=== PATIENT | male | born 1955 | race Caucasian/White ===

== ENCOUNTER 2019-05-05 06:51 | Day surgery (SDC) | payer OTHER ==
[~2019-05-05] VITALS: Ht 162.6 cm; Wt 63.5 kg
[~2019-05-05 06:51] MED LIST: ASPIRIN81 M2 PO; CARVEDILOL3.125 MG PO; CENTRUM SILVER1 EAC2 PO; ESCITALOPRAM OX10 MG PO; KEPPRA1000 MG PO; LISINOPRIL5 MG PO; METFORMIN HCL1000 MG PO; NEURONTIN 300300 M1 PO; NITROGLYCERIN0.4 MG SUBLING; PLAVIX 75 MG TA75 M1 PO; PRED FORTE 1% EY5 M1 OPHTHALMIC
[2019-05-05 08:00] VITALS: BP 131/61
--- NOTE | 2019-05-09 06:19 | O ---
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 PROCEDURE: Enucleation of left eye with implantation of 18 mm Medpor sphere with muscles attached to implant, conjunctivoplasty, and temporary tarsorrhaphy. SURGEON: Kody Telles MD. SLAUGHTERER RELIGIOUS RITUAL: None. ANESTHESIA: General. COMPLICATIONS: None. INDICATIONS FOR SURGERY: This pleasant 63-year-old gentleman has an irreversibly blinded left eye that is chronically painful. He presents today for removal of the eye with reconstruction of the socket. Informed consent was obtained to include but not limited to the potential risk for loss of vision, bleeding, infection, failure to improve the problem, and the potential need for further surgery or treatment. DESCRIPTION OF PROCEDURE: The patient was taken to the operating room where general anesthesia was administered. The left socket was then anesthetized with Xylocaine with epinephrine mixed with Marcaine and Wydase administered both transconjunctivally and transcutaneously. The patient was subsequently prepped and draped in the usual sterile fashion. A moistened sponge was placed on the right eye. A lid speculum was then placed on the left side. A 360-degree conjunctival peritomy was subsequently performed. The oblique quadrants were then bluntly dissected with a Nilson scissor. The lateral rectus muscle was then isolated [facility] [address] [place] [address] OPERATIVE REPORT Name: PARADISE TRUJILLO Room #: DEP [facility] M.Lizette.#: [id number] Admission: 05/05/19 Attend Phys: Kody Telles MD Discharge: 05/05/19 Date of : 55 Report #: [id number] on a muscle hook from the surrounding connective tissue. It was cleaned back from its insertion. A 5-0 double armed Vicryl sutures and that was then passed through its insertion with locking bites at each margin. The muscle was then transected from its attachment to the globe in a Rey used to retract the suture out of the field. The inferior medial and superior rectus muscles were similarly isolated and drawn out of the field. The oblique muscles were isolated on a muscle hook and detached from the globe with a cutting cautery current. The optic nerve was then clamped with a hemostat for 3 minutes. That was released and it was reclamped for 3 more minutes. That was released and it was subsequently reclamped one more time for 3 more minutes. The optic nerve was then transected with an enucleation scissor. Minimal bleeding ensued. It was controlled with diligent pinpoint monopolar cautery. The posterior tenons opening was then opened more widely to allow placement of the sizing sphere. A 20 mm sphere appeared too large, which was somewhat surprising. An 18 mm sphere fit, but it was also snugged. The decision was to go ahead and use the 18 mm sphere. The 18 mm Medpor sphere was selected, was then vacuum aspirated in antibiotic irrigation solution. It was then reposited behind posterior tenons with the aid of an easy glide introducer. Posterior tenons were then closed with interrupted 5-0 Vicryl sutures. The medial and lateral rectus muscles were then advanced and attached to the implant with interrupted 5-0 Vicryl sutures. The superior and inferior rectus muscles were then advanced and attached to the medial and lateral rectus muscles with interrupted 5-0 Vicryl sutures. Anterior tenons were then closed with interrupted 5-0 Vicryl sutures. The conjunctiva was then undermined sufficiently to allow a conjunctivoplasty repair to be accomplished correcting the defect in its most anterior plane. Hemostasis was then re-achieved. The conjunctiva was then advanced and secured with interrupted and running 6-0 Vicryl sutures. The conjunctivoplasty seated well. A medium size conformer was then placed in the socket. Erythromycin ophthalmic ointment was then instilled behind the conformer. A temporary tarsorrhaphy was then fashioned from a short section of IV tubing and a double armed 5-0 nylon suture passed. At Telfa pad was then placed on the eye followed by 2 eye patches are held in place with silk tape and Mastisol. The patient was subsequently transported to the recovery area having tolerated the procedures well with no anesthetic or operative complications being noted. <ELECTRONICALLY SIGNED> By: Kody Telles MD 05/09/19 0619 [id number] Kody Telles MD /nt
--- NOTE | 2019-05-09 18:07 | PATH ---
[facility] [address] [place] [address] PATHOLOGY RPT PROCEDURE Name: PARADISE TEJEDA Room #: DEP [facility] M.R.#: [id number] Admission: 05/05/19 Date of : 55 Discharge: 05/05/19 Report #: [id number] Path Case #: [id number] [facility] Accession Number: [id number] . 01 Material submitted: . eye - LEFT EYE. Modifiers: left . 01 Clinical history: . Blind painful left eye . 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 . (IUV:chacorta; 05/09/2019) QMS 05/09/2019 1328 Local . 02 Electronically signed: . Allie Sawyer MD, Pathologist NPI- [id number] . 01 Gross description: . The specimen is received in formalin, labeled "Paradise Tejeda, left eye". Received is an enucleation specimen measuring 2.6 x 2.4 x 2.3 cm in greatest dimensions with a suture at one aspect, however, orientation is not provided. The optic nerve stump measures 0.5 cm in diameter by 0.5 cm in length. The cornea is irregular in contour and cloudy. The sclera is white to slightly yellow-mcintosh in appearance. Sectioning reveals a yellow plastic prosthetic lens measuring 0.6 x 0.6 cm. The vitreous chamber is filled with clear, slightly gelatinous fluid. The choroid layer is red-brown and slightly mottled in appearance, and is intact with no grossly distinct nodules or lesions. A full thickness cross-section through the sutured area, to include the optic nerve stump, is submitted in cassette A1. (CAA; 05/06/2019) QAC/QAC 05/06/2019 1053 Local . 02 Pathologist provided ICD-10: H54.40, H57.12 . 02 CPT . 608038 Specimen Comment: A courtesy copy of this report has been sent to [phone] Specimen Comment: Report sent to Performed at: [address] [place] [address] PATHOLOGY RPT PROCEDURE Name: PARADISE TEJEDA Room #: DEP [facility] M.R.#: [id number] Admission: 05/05/19 Date of : 55 Discharge: 05/05/19 Report #: [id number] Path Case #: [id number] [address], [place], [place] [id number] MD Rusty Villalpando MD Phone: [phone] Performed at: [address] [id number] MD Allie Sawyer MD Phone: [phone]
== END 2019-05-05 10:50 | disposition home or self-care (01) ==
LOC: OR 06:51 → TBA 06:52 → OR 10:36
DX: H57.12 Ocular pain, left eye (principal); H11.242 Scarring of conjunctiva, left eye; H54.7 Unspecified visual loss; I10 Essential (primary) hypertension; E11.9 Type 2 diabetes mellitus without complications; E78.5 Hyperlipidemia, unspecified; F32.9 Major depressive disorder, single episode, unspecified; F17.210 Nicotine dependence, cigarettes, uncomplicated; Z98.890 Other specified postprocedural states; Z79.899 Other long term (current) drug therapy; Z95.1 Presence of aortocoronary bypass graft; Z79.82 Long term (current) use of aspirin
CPT/HCPCS: 50010; 50101; 50386; 50398; 51636; 51854; 53500; 56527; 56528; 56531; 62110; 62900; 64037; 70005